=== PATIENT | female | born 1945 | race Caucasian/White ===

== ENCOUNTER 2016-11-05 06:41 | Day surgery (SDC) | payer MEDICARE, OTHER ==
--- NOTE | ~2016-11-05 | EGD ---
EGD REPORT [facility] [address] [place]. [id number] NAME: CHAVEZ MONTOYA : [birth year] STATUS : REG [facility]#: [id number] AGE: 71 ADM/REG DATE : 11/05/16 MR#: [id number] REPORT SERV DATE: 11/05/16 DICTATED BY: REGLA CONCEPCION DATE: 11/05/16 REPORT STATUS : Draft TRANSCRIBED BY: [employer] DATE: 11/05/16 [facility] Patient Name: Chavez Montoya Date of : 1945 Attending MD: REGLA CONCEPCION, Procedure Date No Time: 11/05/2016 Procedure: Colonoscopy Indications: Screening for colorectal malignant neoplasm Referring MD: JACE EAGLE Medicines: Monitored Anesthesia Care Complications: No immediate complications. Estimated blood loss: None. Procedure: Pre-Anesthesia Assessment: - ASA Grade Assessment: III - A patient with severe systemic disease. After I obtained informed consent, the scope was passed under direct vision. Throughout the procedure, the patient's blood pressure, pulse, and oxygen saturations were monitored continuously. The CF [id number] was introduced through the anus and advanced to the cecum, identified by appendiceal orifice and ileocecal valve. The colonoscopy was performed without difficulty. The patient tolerated the procedure well. The quality of the bowel preparation was good. Findings: The perianal and digital rectal examinations were normal. Internal hemorrhoids were found, and they were Grade I (internal hemorrhoids that do not prolapse). The exam was otherwise without abnormality. Impression: - Internal hemorrhoids. - The examination was otherwise normal. Recommendation: - Patient has a contact number available for emergencies. The signs and symptoms of potential delayed complications were discussed with the patient. Return to normal activities tomorrow. Written discharge instructions were provided to the patient. - Return to previous diet. - Continue present medications. - Repeat colonoscopy in 10 years for screening purposes. Procedure Code(s): --- Professional --- 08054, Colonoscopy, flexible, proximal to splenic flexure; diagnostic, with or without collection of EGD REPORT [address] [place]. [address] NAME: CHAVEZ MONTOYA : [birth year] STATUS : REG [facility]#: [id number] AGE: 71 ADM/REG DATE : 11/05/16 MR#: [id number] REPORT SERV DATE: 11/05/16 DICTATED BY: REGLA CONCEPCION DATE: 11/05/16 REPORT STATUS : Draft TRANSCRIBED BY: [employer] DATE: 11/05/16 specimen(s) by brushing or washing, with or without colon decompression (separate procedure) Diagnosis Code(s): --- Professional --- K64.0, First degree hemorrhoids Z12.11, Encounter for screening for malignant neoplasm of colon CPT copyright 2013 [employer]. All rights reserved. The codes documented in this report are preliminary and upon candlemaking laborer review may be revised to meet current compliance requirements. REGLA CONCEPCION, 11/05/2016 7:48 AM Number of Addenda: 0 Note Initiated On: 11/05/2016 7:27 AM Scope Withdrawal Time 0 hours 7 minutes 36 seconds [id number] [facility] [place] [address]
[~2016-11-05 06:41] MED LIST: AMB5 PO; AUG BETAMET0.053 EX; AUG875 PO; CALTRAT600 PO; CLEOCIN300 MG PO; COMP10B PO; CUBICIN500 MG IV; ENTOCORT3 PO; FOLIC PO; GAS-X80 MG PO; GLUCPH PO; IMOD PO; K500 PO; L20 PO; LANTUS SC; LEVOTHYROXIN75 MCG PO; LOP25 PO; LOP50 PO; MAG6464 MG PO; MAGOX4 PO; NEBUPENT300 M1 IN; NEXIUM40 PO; OCUVITE PO; OXYCOD PO; P10 PO; P20 PO; P5 PO; PENICILLN VK500 MG PO; PEP20 PO; PEPCID40 MG PO; PR25 PO; PREDNISONE2.5 MG PO; PRILOSEC40 MG PO; PROGRAF0.5 PO; PROTOPIC0.1 % EX; SLOWMAG; TRIAMCINOLON0.12 EX; VFEND200 PO; VIB100 PO; ZOFRAN8 PO; ZOVI200CAP PO; ZOVIRAX400 MG PO
== END 2016-11-05 23:59 | disposition home or self-care (01) ==
LOC: DMU 06:41
PROVIDERS: Internal Medicine Gastroenterology
PROC: 0DJD8ZZ Inspection of Lower Intestinal Tract, Via Natural or Artificial Opening Endoscopic (ICD-10-PCS; principal; 2016-11-05 08:00)
DX: Z12.11 Encounter for screening for malignant neoplasm of colon (principal); K64.0 First degree hemorrhoids; I12.9 Hypertensive chronic kidney disease with stage 1 through stage 4 chronic kidney disease, or unspecified chronic kidney disease; N18.9 Chronic kidney disease, unspecified; E03.9 Hypothyroidism, unspecified; E11.9 Type 2 diabetes mellitus without complications; D64.9 Anemia, unspecified; Z88.2 Allergy status to sulfonamides; Z90.710 Acquired absence of both cervix and uterus; Z90.49 Acquired absence of other specified parts of digestive tract; Z98.890 Other specified postprocedural states
CPT/HCPCS: 82962